=== PATIENT | male | born 1975 | race Caucasian/White ===

== ENCOUNTER 2021-08-24 09:51 | Emergency (ER) | payer BC ==
[2021-08-24 10:04] VITALS: BP 129/80; PULSE 71; RESP 16; TEMP 97.7
[2021-08-24] MEDS ORDERED: methylPREDNISolone SOD SUCCI 125 MG/2 ML VIAL IM ONE (10:31)
[2021-08-24] MEDS ORDERED: diphenhydrAMINE 25 MG CAP PO STA (10:31)
--- NOTE | 2021-08-24 10:36 | ED ---
Skin/Abscess/FB HPI - General Chief complaint: Skin/Abscess/Foreign Body Stated complaint: poison oak, rash Time Seen by Provider: 08/24/21 10:24 Source: patient, RN notes reviewed Mode of arrival: ambulatory Limitations: no limitations - History of Present Illness Initial comments: This is a 45-year-old male who presents to the emergency department for a poison oak rash. Patient states that 3 days ago he was removing poison oak from the yard, and he and his son broke on the rash. He has rashes on his right cheek, bilateral arms, and groin. Patient has not been taking any medication for this. States that this is very itchy. He has never had poison oak or poison lashay before. His son was started on steroids and given lotions. Patient denies any fevers, chills, sore throat, visual changes, cough, dyspnea, chest pain, palpitations, abdominal pain, nausea, vomiting, diarrhea, constipation, dysuria, hematuria, back pain, headaches, or weakness. MD complaint: rash Onset/Timin -: days(s) Location: face, LUE, RUE, genitals - Related Data Previous Rx's Medication Instructions Recorded Clobetasol Propionate [Temovate 1 applic TOPICAL BID #60 gm 08/24/21 0.05% Cream] hydrOXYzine HCL [Atarax] 25 mg PO TID PRN #15 tab 08/24/21 predniSONE [Deltasone] 20 mg PO DAILY 7 Days #15 tab 08/24/21 Allergies Allergy/AdvReac Type Severity Reaction Status Date / Time No Known Allergies Allergy Verified 08/24/21 10:04 Review of Systems ROS Statement: Those systems with pertinent positive or pertinent negative responses have been documented in the HPI. ROS Other: All systems not noted in ROS Statement are negative. Past Medical History Past Medical History: No Reported History History of Any Multi-Drug Resistant Organisms: None Reported Past Surgical History: No Surgical Hx Reported Past Psychological History: No Psychological Hx Reported Smoking Status: Former smoker Past Alcohol Use History: None Reported Past Drug Use History: None Reported General Exam Limitations: no limitations General appearance: alert, in no apparent distress Head exam: Present: atraumatic, normocephalic, normal inspection Respiratory exam: Present: normal lung sounds bilaterally. Absent: respiratory distress, wheezes, rales, rhonchi, stridor Cardiovascular Exam: Present: regular rate, normal rhythm, normal heart sounds. Absent: systolic murmur, diastolic murmur, rubs, gallop, clicks Neurological exam: Present: alert, oriented X3, CN II-XII intact Psychiatric exam: Present: normal affect, normal mood Skin exam: Present: other (Erythematous macules and papules with minor blistering on the right cheek and bilateral extremities, right worse than left.) Course Vital Signs 08/24/21 10:01 Temperature 97.7 F Pulse Rate 71 Respiratory 16 Rate Blood Pressure 129/80 O2 Sat by Pulse 96 Oximetry Medical Decision Making - Medical Decision Making This is a 45-year-old male who presents to the emergency department for a poison oak rash. Solu-Medrol and Benadryl provided in the emergency department. Prescription for Prednisone taper, Atarax, and Clobetasol cream sent to the pharmacy. He is advised to avoid other anti-inflammatories when taking the prednisone. Instructed him to avoid using the clobetasol cream on his face or in his groin. He is additionally advised that the Atarax is sedating, and he should not take this before work or driving. Recommended he avoid heat and use cold compresses, as the heat can exacerbate symptoms. Reminded him to wash all the clothes that were exposed to the poison oak and advised [id number] calamine lotion and Zanfel. Return precautions reviewed in depth, the patient is instructed to return to the emergency department with any new, worsening, or concerning symptoms. Patient verbalized understanding. This case was discussed in detail with the attending ED physician. Presentation, findings, and treatment plan discussed in detail as well. Disposition Clinical Impression: Poison oak dermatitis Disposition: HOME SELF-CARE Instructions (If sedation given, give patient instructions): Poison Lashay (ED), Cold Compress or Soak (ED) Additional Instructions: Return to the emergency department with any new, worsening, or concerning sy mptoms. Prednisone prescribed, instructions as follows: Take 3 pills (60mg) for the first 3 days, followed by 2 pills (40mg) for 2 days, and 1 pill (20mg) for 2 days. Apply the clobetasol cream twice daily to the affected areas, but avoid the face and groin. Over the counter Calamine lotion and Zanfel are also recommended. Avoid heat and use cold compresses. Make sure to wash the clothes you were wearing when you came into contact with the poison oak. Prescriptions: hydrOXYzine HCL [Atarax] 25 mg PO TID PRN #15 tab PRN Reason: Itching predniSONE [Deltasone] 20 mg PO DAILY 7 Days #15 tab Clobetasol Propionate [Temovate 0.05% Cream] 1 applic TOPICAL BID #60 gm Is patient prescribed a controlled substance at d/c from ED?: No Referrals: None,Stated [Primary Care Provider] - 1-2 days
== END 2021-08-24 11:41 | disposition home or self-care (01) ==
LOC: EC 09:51
DX: L23.7 Allergic contact dermatitis due to plants, except food (principal); Z87.891 Personal history of nicotine dependence
CPT/HCPCS: 99282; 96372; J2930